=== PATIENT | female | born 1965 | race American Indian/Alaskan Native ===

== ENCOUNTER 2016-02-22 20:04 | Emergency (ER) | payer SELFPAY ==
[2016-02-23 00:52] LABS: Basophils % (Auto) 0.9 % (0.0-1.8); Eosinophils % (Auto) 2.7 % (0.0-4.3); Hematocrit 42.4 % (30.3-42.9); Hemoglobin 13.7 gm/dl (10.1-14.3); Mean Corpuscular HGB Conc 32 % (30-34); Mean Corpuscular Hemoglobin 29 pg (28-32); Mean Corpuscular Volume 91 fl (79-97); Platelet Count 283 K/mm3 (140-440); Red Blood Count 4.69 M/mm3 (3.65-5.03); Red Cell Distribution Width 13.5 % (13.2-15.2); White Blood Count 7.5 K/mm3 (4.5-11.0)
[2016-02-23 01:07] LABS: Albumin 4.2 g/dL (3.9-5); Albumin/Globulin Ratio 1.4 %; BUN/Creatinine Ratio 12.3; Bilirubin,Total 0.3 mg/dL (0.1-1.2); Calcium 8.9 mg/dL (8.4-10.2); Chloride 105.3 mmol/L (98-107); Total Protein 7.2 g/dL (6.3-8.2)
[2016-02-23] MEDS ORDERED: NACL ONE (07:47)
--- NOTE | 2016-02-23 07:48 | Emergency Department Report ---
HPI - General Chief Complaint: Abdominal Pain Time Seen by Provider: 02/23/16 07:36 - HPI HPI: Chief complaint: Right side pain HPI: States she woke up yesterday morning with right side pain. Patient denies any injury. Patient did have some loose bowel movements last week. Patient denies nausea vomiting or fever. Patient has had hysterectomy which was complicated by bladder which has subsequently healed. Patient denies any urinary symptoms. Patient has had no other abdominal surgeries. Pain is more lateral between the flank and the right upper quadrant but does radiate more coarse the flank than the abdomen. Patient states it worsens when she moves. Mode of arrival: private car Source: Patient Began: Yesterday morning Duration: Continuous Context: See above Quality: Dull Severity: 5 out of 10 Improved with: Nothing Worsened with: See above Associated signs and symptoms: See above ED Past Medical Hx - Past Medical History Previous Medical History?: Yes Hx Hypertension: Yes (not taking medications as her blood pressure is no longer elevated) - Surgical History Additional Surgical History: hysterectomy 05/2012 - Social History Smoking Status: Never Smoker Substance Use Type: None - Medications Home Medications: Home Medications Medication Instructions Recorded Confirmed Last Taken Type traMADol [Ultram 50 MG tab] 50 mg PO Q6HR PRN #10 tablet 02/23/16 Unknown Rx ED Review of Systems ROS: Stated complaint: RT FLANK PAIN Other details as noted in HPI ROS Constitutional: No fever ENT: No uri symptoms Cardiovascular: No chest pain Respiratory: No sob or cough GI: No nausea vomiting : No dysuria frequency or urgency, Skin: No rash Neuro: No focal weakness or numbness Psych: No depression Blair/lymph: No edema Physical Exam - Physical Exam Vital Signs: Vital Signs 02/23/16 02/23/16 02/23/16 00:06 04:37 06:42 Temperature 98.5 F 98.3 F 98.0 F Pulse Rate 76 73 79 Respiratory 20 18 18 Rate Blood Pressure 134/72 152/85 Blood Pressure 142/73 [Left] O2 Sat by Pulse 100 100 100 Oximetry 02/23/16 07:00 Temperature Pulse Rate Respiratory 18 Rate Blood Pressure Blood Pressure [Left] O2 Sat by Pulse 99 Oximetry Physical Exam: GENERAL: The patient is well-developed well-nourished . HEENT: Normocephalic. Atraumatic. Extraocular motions are intact. Patient has moist mucous membranes. NECK: Supple. No meningitic signs are noted. There is no adenopathy noted. CHEST/LUNGS: Clear to auscultation. There is no respiratory distress noted. HEART/CARDIOVASCULAR: Regular. There is no tachycardia. There is no gallop rub or murmur. ABDOMEN: Abdomen is soft, nontender. There is tenderness to the right flank and lateral abdominal wall. Patient has normal bowel sounds. There is no abdominal distention. SKIN: There is no rash. There is no edema. There is no diaphoresis. NEURO: The patient is awake, alert, and oriented. The patient is cooperative. The patient has no focal neurologic deficits. The patient has normal speech. MUSCULOSKELETAL: There is no tenderness or deformity. There is no limitation range of motion. There is no evidence of acute injury. ED Course Vital Signs 02/23/16 02/23/16 02/23/16 00:06 04:37 06:42 Temperature 98.5 F 98.3 F 98.0 F Pulse Rate 76 73 79 Respiratory 20 18 18 Rate Blood Pressure 134/72 152/85 Blood Pressure 142/73 [Left] O2 Sat by Pulse 100 100 100 Oximetry 02/23/16 07:00 Temperature Pulse Rate Respiratory 18 Rate Blood Pressure Blood Pressure [Left] O2 Sat by Pulse 99 Oximetry ED Medical Decision Making - Lab Data Result diagrams: 02/23/16 00:22 02/23/16 00:22 Laboratory Tests 02/23/16 00:22 Lipase 43 - Radiology Data Radiology results: report reviewed (CT abdomen negative) Critical care attestation.: If time is entered above; I have spent that time in minutes in the direct care of this critically ill patient, excluding procedure time. ED Disposition Clinical Impression: Right sided abdominal pain Disposition: DISCHARGED TO HOME OR SELFCARE Is pt being admited?: No Does the pt Need Aspirin: No Condition: Stable Instructions: Abdominal Pain (ED) Prescriptions: traMADol [Ultram 50 MG tab] 50 mg PO Q6HR PRN #10 tablet PRN Reason: Pain Referrals: PRIMARY CARE, [Primary Care Provider] - 3-5 Days [facility] [Provider Group] - 3-5 Days Time of Disposition: 08:29
[2016-02-23 08:09] LABS: Bacteria,Urine 1+ /HPF (Negative); Bilirubin,Urine NEG (Negative); Blood,Urine NEG (Negative); Ketones,Urine TR mg/dL (Negative); Leukocyte Esterase,Urine NEG (Negative); Mucus,Urine 1+ /HPF; Nitrite,Urine NEG (Negative)
--- NOTE | 2016-02-23 08:34 | Cat Scan Report ---
CT ABDOMEN AND PELVIS WITH CONTRAST INDICATION: Abdominal pain. COMPARISON: None similar. FINDINGS: Abdomen and pelvis CT performed following intravenous administration of 100 cc of Omnipaque 300. LUNG BASES: Nonspecific distal esophageal wall thickening, not excluded for gastroesophageal reflux and/or hiatal hernia, amongst others. ABDOMEN: Couple of sub-cm, indeterminate hepatic hypodensities. Right hepatic lobe approximately 17.5 cm in length. Otherwise unremarkable liver, spleen, gallbladder, pancreas, adrenals, non-aneurysmal abdominal aorta with mild atherosclerotic changes, IVC and non-hydronephrotic kidneys. No ascites. Nonopacified GI tract evaluation limited, though grossly nonobstructive. Mid to distal small bowel loops fluid filled and largely nondilated measuring up to 1.6 cm caliber, though maximum caliber in the left hemiabdomen up to 2.8 cm on axial image 106, series 2. Normal retrocecal appendix. Largest right lower quadrant mesenteric lymph node is 1.1 cm, image 202, series 2. No other significant adenopathy. Mild stool throughout colon, greatest along the ascending colon. Approximately 40-50% celiac axis narrowing soon after its aortic origin possible as on sagittal images 94-96. SMA and JARED are patent. PELVIS: Uterus surgically absent. Few small phleboliths. Urinary bladder suboptimally distended, though otherwise unremarkable. Rectosigmoid stool. No free fluid or significant adenopathy. Mild degenerative changes with most prominent lower thoracic spine osteophytes. CONCLUSION: No acute CT abnormality with various incidental findings, as above. Please correlate. I phoned the above results to Dr. Kirk in the ER, 8:20 AM, 02/23/2016. Thank you for the opportunity to participate in this patient's care.
[2016-02-23 08:43] VITALS: BP 108/65
--- NOTE | 2016-02-23 09:54 | XRay Report ---
CHEST 2 VIEWS INDICATION: Chest pain. COMPARISON: None similar. FINDINGS: PA and lateral chest radiographs demonstrate limited inspiration with mild exaggerated cardiomediastinal silhouette and slightly crowded lung markings, more so towards the bases. No dense focal consolidation, pleural effusions or CHF. Thoracic spondylosis. CONCLUSION: No acute chest process with mild hypoinflation, as described. Thank you for the opportunity to participate in this patient's care.
== END 2016-02-23 08:44 | disposition home or self-care (01) ==
LOC: ED 20:04
DX: R10.9 Unspecified abdominal pain (principal); I10 Essential (primary) hypertension
CPT/HCPCS: 36415; 71020; 74177; 80053; 81001; 83690; 85025; 99285; Q9967

== ENCOUNTER 2021-03-24 20:22 | Inpatient (IN) | payer SELFPAY ==
[2021-03-25] MEDS ORDERED: cloNIDine 0.2 MG TAB PO ONE (01:08)
[2021-03-25 02:01] LABS: BUN/Creatinine Ratio 14; Blood Urea Nitrogen 15 mg/dL (7-17); Calcium 8.7 mg/dL (8.4-10.2); Hemolysis Index 9
--- NOTE | 2021-03-25 02:01 | Cat Scan Report ---
CT HEAD WITHOUT CONTRAST INDICATION / CLINICAL INFORMATION: Dizziness and Headache. TECHNIQUE: CT of the head was performed without administration of intravenous contrast. All CT scans at this location are performed using CT dose reduction for ALARA by means of automated exposure contr ol. COMPARISON: None available. FINDINGS: CEREBRAL PARENCHYMA: No significant abnormality. No acute territorial infarct. HEMORRHAGE: None. EXTRA-AXIAL SPACES: Normal in size and morphology for the patient's age. VENTRICULAR SYSTEM: Normal in size and morphology for the patient's age. MIDLINE SHIFT / HERNIATION: None. CEREBELLUM / BRAINSTEM: Central hypoattenuation within the lower katharine possibly artifactual. Posterior fossa otherwise demonstrates no significant abnormality. ORBITS: Normal as visualized. SOFT TISSUES: No significant abnormality. SKULL: No significant abnormality. PARANASAL SINUSES / MASTOID AIR CELLS: Normal as visualized. ADDITIONAL FINDINGS: None. IMPRESSION: 1. Central hypoattenuation within the katharine possibly artifactual. Lacunar infarction excluded. MRI may be useful for further characterization. 2. Otherwise no acute findings. Signer Name: Moe Moore II, MD Signed: 03/25/2021 1:57 AM Workstation Name: [id number]
[2021-03-25 02:49] LABS: Hemoglobin 13.4 gm/dl (10.1-14.3)
[2021-03-25] MEDS ORDERED: ASPIRIN 325 MG TAB PO ONE (02:56)
[2021-03-25] MEDS ORDERED: MECLIZINE 25 MG TAB PO ONE (03:00)
--- NOTE | 2021-03-25 03:03 | Emergency Department Report ---
HPI - General Chief Complaint: Dizziness Time Seen by Provider: 03/25/21 02:36 - HPI HPI: Room 20 The patient is a 55-year-old female presenting with a chief complaint of dizziness. The patient states 2 weeks ago she had onset of dizziness while driving. Patient states for the past 2 weeks she has had intermittent dizziness, sometimes related to change in position. Patient denies a headache currently or preceding trauma. Patient admits to occasional nausea but denies vomiting. Patient denies paresthesia, weakness or dysarthria. The patient s tates for 1 month she has had pain inside of her right ear whenever she opens her mouth widely. ED Past Medical Hx - Past Medical History Previous Medical History?: Yes Hx Hypertension: Yes (not taking medications) - Surgical History Past Surgical History?: Yes Additional Surgical History: hysterectomy 05/2012 - Family History Family history: no significant - Social History Smoking Status: Current Every Day Smoker Substance Use Type: None (Denies illicit drug use), Alcohol (Occasional) - Medications Home Medications: Home Medications Medication Instructions Recorded Confirmed Last Taken Type traMADoL [Ultram 50 MG tab] 50 mg PO Q6HR PRN #10 tablet 02/23/16 Unknown Rx ED Review of Systems ROS: Stated complaint: HEADACHE/DIZZY Other details as noted in HPI Constitutional: no symptoms reported Eyes: denies: eye pain ENT: ear pain. denies: throat pain Respiratory: no symptoms reported Cardiovascular: denies: chest pain Endocrine: no symptoms reported Gastrointestinal: nausea. denies: vomiting Genitourinary: denies: dysuria Musculoskeletal: denies: back pain Neurological: vertigo. denies: headache, weakness, numbness, paresthesias Physical Exam - Physical Exam Vital Signs: Vital Signs 03/25/21 03/25/21 01:01 01:29 Temperature 98.9 F Pulse Rate 87 87 Respiratory 20 Rate Blood Pressure 207/114 Blood Pressure 207/114 [Right] O2 Sat by Pulse 99 Oximetry Physical Exam: GENERAL: The patient is well-developed well-nourished female lying on stretcher not appearing to be in acute distress. [] HEENT: Normocephalic. Atraumatic. Extraocular motions are intact. Patient has moist mucous membranes. No nystagmus. Right TM clear. 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 Trachea midline CHEST/LUNGS: Clear to auscultation. There is no respiratory distress noted. HEART/CARDIOVASCULAR: Regular. There is no tachycardia. There is no gallop rub or murmur. ABDOMEN: Abdomen is soft, nontender. Patient has normal bowel sounds. There is no abdominal distention. SKIN: There is no rash. There is no edema. There is no diaphoresis. NEURO: The patient is awake, alert, and oriented. The patient is cooperative. The patient has no focal neurologic deficits. The patient has normal speech. Cranial nerves II through XII grossly intact. No nystagmus noted. No dysmetria noted with [id number] bilaterally. NIHSS=0 MUSCULOSKELETAL: There is no evidence of acute injury. ED Course Vital Signs 03/25/21 03/25/21 01:01 01:29 Temperature 98.9 F Pulse Rate 87 87 Respiratory 20 Rate Blood Pressure 207/114 Blood Pressure 207/114 [Right] O2 Sat by Pulse 99 Oximetry ED Medical Decision Making - Lab Data Result diagrams: 03/25/21 01:22 03/25/21 01:22 Laboratory Tests 03/25/21 03/25/21 03/25/21 01:22 01:22 02:43 WBC 7.4 RBC 4.61 Hgb 13.4 Hct 42.1 MCV 91 MCH 30 MCHC 32 RDW 13.5 Plt Count 330 PT 11.9 L INR 0.79 L APTT 29.4 Thrombin Time 15.3 Sodium 144 Potassium 4.2 Chloride 108.5 H Carbon Dioxide 25 Anion Gap 15 BUN 15 Creatinine 1.1 Estimated GFR > 60 BUN/Creatinine Ratio 14 Glucose 130 H Calcium 8.7 - EKG Data -: EKG Interpreted by Il EKG shows normal: sinus rhythm Rate: normal - EKG Data When compared to previous EKG there are: previous EKG unavailable Interpretation: other (No ischemic changes seen) - Radiology Data Radiology results: report reviewed (CT head), image reviewed (CT head) [facility] [address] [place] [address] Cat Scan Report Signed Patient: SANDRA PALACIOS MR#: [id number] : 1965 Acct:[id number] Age/Sex: 55 / F ADM Date: 03/24/21 Loc: ED Attending Dr: Ordering Physician: BRANDON LAM MD Date of Service: 03/25/21 P rocedure(s): CT head/brain wo con Accession Number(s): [id number] cc: BRANDON LAM MD CT HEAD WITHOUT CONTRAST INDICATION / CLINICAL INFORMATION: Dizziness and Headache. TECHNIQUE: CT of the head was performed without administration of intravenous contrast. All CT scans at this location are performed using CT dose reduction for ALARA by means of automated exposu re control. COMPARISON: None available. FINDINGS: CEREBRAL PARENCHYMA: No significant abnormality. No acute territorial infarct. HEMORRHAGE: None. EXTRA-AXIAL SPACES: Normal in size and morphology for the patient's age. VENTRICULAR SYSTEM: Normal in size and morphology for the patient's age. MIDLINE SHIFT / HERNIATION: None. CEREBELLUM / BRAINSTEM: Central hypoattenuation within the lower katharine possibly artifactual. Posterior fossa otherwise demonstrates no significant abnormality. ORBITS: Normal as visualized. SOFT TISSUES: No significant abnormality. SKULL: No significant abnormality. PARANASAL SINUSES / MASTOID AIR CELLS: Normal as visualized. ADDITIONAL FINDINGS: None. IMPRESSION: 1. Central hypoattenuation within the katharine possibly artifactual. Lacunar infarction excluded. MRI may be useful for further characterization. 2. Otherwise no acute findings. Signer Name: Marie Sosa II, MD Signed: 03/25/2021 1:57 AM Workstation Name: [id number] Transcribed By: BERNARDINO Dictated By: MARIE SOSA II, MD Electronically Authenticated By: MARIE SOSA II, MD Signed Date/Time: 03/25/21156 DD/ 3 TD/TT: Print Cancel - Differential Diagnosis Peripheral vertigo, central vertigo, CVA Critical care attestation.: If time is entered above; I have spent that time in minutes in the direct care of this critically ill patient, excluding procedure time. ED Disposition Clinical Impression: Dizziness, Abnormal CT scan, head Disposition: ADMITTED INPATIENT Is pt being admited?: Yes Does the pt Need Aspirin: Yes Condition: Fair Time of Disposition: 04:07 (Hospitalist called (Dr Bonds))
[2021-03-25 03:24] LABS: Hematocrit 42.1 % (30.3-42.9); Mean Corpuscular HGB Conc 32 % (30-34); Mean Corpuscular Volume 91 fl (79-97); Platelet Count 330 K/mm3 (140-440); Red Blood Count 4.61 M/mm3 (3.65-5.03); Red Cell Distribution Width 13.5 % (13.2-15.2)
[2021-03-25 03:55] LABS: INR 0.79 (0.87-1.13)
[2021-03-25 03:56] LABS: Partial Thromboplastin Time 29.4 Sec. (24.2-36.6); Thrombin Time 15.3 Sec. (15.1-19.6)
--- NOTE | 2021-03-25 07:54 | History and Physical Report ---
History of Present Illness Date of examination: 03/25/21 Date of admission: 07/23/21 Chief complaint: Dizziness with headache History of present illness: Patient is a 55-year-old female with past medical history of hypertension unfortunately has not been taking her medication since 2017. Also history of tobacco use 1 to 2 cigarettes daily and also 1-2 beer at night to help her sleep. She presents to the ED with complaints of intermittent dizziness for 2 to 3 weeks but worse in the last 24 to 48 hours. She reports that she favors her right side when she is ambulating. She denies any paresthesia or gross neurological weakness or dysarthria. She does also report a headache which she rates at 3/10 intensity with no photophobia or phonophobia in the ED she was noted to have a blood pressure of 207/[address] of the brain remarkable for hypodense area in the mid katharine which there was also question of artifact. She is recommended for admission for further work-up for possible stroke secondary to hypertension. On my evaluation she reports that her symptoms have grossly improved although she is still very weak and afraid to get up to walk. Past History Past Medical History: hypertension Past Surgical History: hysterectomy Social history: smoking, full code Family history: no significant family history Medications and Allergies Allergies Allergy/AdvReac Type Severity Reaction Status Date / Time No Known Allergies Allergy Verified 11/23/14 21:46 Home Medications Medication Instructions Recorded Confirmed Last Taken Type traMADoL [Ultram 50 MG tab] 50 mg PO Q6HR PRN #10 tablet 02/23/16 Unknown Rx Review of Systems All systems: negative Constitutional: weakness, malaise, lethargy Exam - Physical Exam Narrative exam: VITAL SIGNS: Reviewed. GENERAL: The patient appears normally developed, Vital signs as documented. HEAD: No signs of head trauma. EYES: Pupils are equal. Extraocular motions intact. EARS: Hearing grossly intact. MOUTH: Oropharynx is normal. NECK: No adenopathy, no JVD. CHEST: Chest with clear breath sounds bilaterally. No wheezes, rales, or rhonchi. CARDIAC: Regular rate and rhythm. S1 and S2, without murmurs, gallops, or rubs. VASCULAR: No Edema. Peripheral pulses normal and equal in all extremities. ABDOMEN: Soft, non tender and non distended. No rebound or guarding, and no masses palpated. Bowel Sounds normal. MUSCULOSKELETAL: Good range of motion of all major joints. Extremities without clubbing, cyanosis or edema. NEUROLOGIC EXAM: Alert and oriented x 3 No focal sensory or strength deficits. Speech normal. Follows commands. PSYCHIATRIC: Mood normal. SKIN: detail exam as documented in skin assessment - Constitutional Vitals: Temp Pulse Resp BP Pulse Ox 98.9 F 73 16 124/71 97 03/25/21 01:01 03/25/21 07:31 03/25/21 07:47 03/25/21 07:31 03/25/21 07:47 Results - Labs CBC & Chem 7: 03/25/21 01:22 03/25/21 01:22 Labs: Laboratory Last Values WBC 7.4 K/mm3 (4.5-11.0) 03/25/21 01:22 RBC 4.61 M/mm3 (3.65-5.03) 03/25/21 01:22 Hgb 13.4 gm/dl (10.1-14.3) 03/25/21 01:22 Hct 42.1 % (30.3-42.9) 03/25/21 01:22 MCV 91 fl (79-97) 03/25/21 01:22 MCH 30 pg (28-32) 03/25/21 01:22 MCHC 32 % (30-34) 03/25/21 01:22 RDW 13.5 % (13.2-15.2) 03/25/21 01:22 Plt Count 330 K/mm3 (140-440) 03/25/21 01:22 PT 11.9 Sec. (12.2-14.9) L 03/25/21 02:43 INR 0.79 (0.87-1.13) L 03/25/21 02:43 APTT 29.4 Sec. (24.2-36.6) 03/25/21 02:43 Thrombin Time 15.3 Sec. (15.1-19.6) 03/25/21 02:43 Sodium 144 mmol/L (137-145) 03/25/21 01:22 Potassium 4.2 mmol/L (3.6-5.0) 03/25/21 01:22 Chloride 108.5 mmol/L (98-107) H 03/25/21 01:22 Carbon Dioxide 25 mmol/L (22-30) 03/25/21 01:22 Anion Gap 15 mmol/L 03/25/21 01:22 BUN 15 mg/dL (7-17) 03/25/21 01:22 Creatinine 1.1 mg/dL (0.6-1.2) 03/25/21 01:22 Estimated GFR > 60 ml/min 03/25/21 01:22 BUN/Creatinine Ratio 14 % 03/25/21 01:22 Glucose 130 mg/dL (65-100) H 03/25/21 01:22 Calcium 8.7 mg/dL (8.4-10.2) 03/25/21 01:22 Assessment and Plan Assessment and plan: Patient is a 55-year-old female with past medical history of hypertension unfortunately has not been taking her medication since 2017. Also history of tobacco use 1 to 2 cigarettes daily and also 1-2 beer at night to help her sleep. She presents to the ED with complaints of intermittent dizziness for 2 to 3 weeks but worse in the last 24 to 48 hours. She reports that she favors her right side when she is ambulating. She denies any paresthesia or gross neurological weakness or dysarthria. In the ED she was noted to have a blood pressure of 207/[address] of the brain remarkable for hypodense area in the mid katharine which there was also question of artifact. She is recommended for admission for further work-up for possible stroke secondary to hypertension. On my evaluation she reports that her symptoms have grossly improved although she is still very weak and afraid to get up to walk. Dizziness with possible TIA Hypertensive urgency EtOH use disorder Tobacco use disorder Noncompliant Plan We will admit patient to telemetry NIH scale is 0 We will obtain PT OT and stroke work-up including aspirin Lipitor and MRI Obtain neurology consultation for further evaluation Extensive counseling given to the patient on tobacco cessation and EtOH cessation We will start on appropriate blood pressure medications to better control her blood pressure counseling also provided to her total counseling time 30 minutes Plan of care discussed with the patient if work-up is negative patient can be discharged in 24 hours Monitor for any EtOH withdrawal Advance Directives: Yes Plan of care discussed with patient/family: Yes
--- NOTE | 2021-03-25 08:44 | Consultation ---
History of Present Illness Consult date: 03/25/21 Reason for Consult: Dizziness for a week History of present illness: - General Chief Complaint: Dizziness Time Seen by Provider: 03/25/21 02:36 - HPI The patient is a 55-year-old female presenting with a chief complaint of dizziness. The patient states 2 weeks ago she had onset of dizziness while driving. Patient states for the past 2 weeks she has had intermittent dizziness, sometimes related to change in position. with associated headache and elevated BP Patient admits to occasional nausea but denies vomiting. Patient denies paresthesia, weakness or dysarthria. The patient states for 1 month she has had pain inside of her right ear when ever she opens her mouth widely. According to pt. she is with long hx of HTN but she is not taking her medications Er BP was 207/114. CT brain is remarkable for hypodense area in mid Allison ? artifact she smoke 1-2 cig daily she drink 1-2 beer and or vodka daily to calm her down ED Past Medical Hx - Past Medical History Hx Hypertension: Yes (not taking medications) - Surgical History Surgical History: hysterectomy 05/2012 - Family History Family history: no significant - Social History Smoking Status: Current Every Day Smoker Substance Use Type: None (Denies illicit drug use), Alcohol (Occasional) - Medications Home Medications: Home Medications Medication Instructions Recorded Confirmed Last Taken Type traMADoL [Ultram 50 MG tab] 50 mg PO Q6HR PRN #10 tablet 02/23/16 Unknown Rx ED Review of Systems ROS: Stated complaint: HEADACHE/DIZZY Other details as noted in HPI Constitutional: no symptoms reported Eyes: denies: eye pain ENT: ear pain. denies: throat pain Respiratory: no symptoms reported Cardiovascular: denies: chest pain Endocrine: no symptoms reported Gastrointestinal: nausea. denies: vomiting Genitourinary: denies: dysuria Musculoskeletal: denies: back pain Neurological: vertigo. denies: headache, weakness, numbness, paresthesias Medications and Allergies Allergies Allergy/AdvReac Type Severity Reaction Status Date / Time No Known Allergies Allergy Verified 11/23/14 21:46 Home Medications Medication Instructions Recorded Confirmed Last Taken Type traMADoL [Ultram 50 MG tab] 50 mg PO Q6HR PRN #10 tablet 02/23/16 Unknown Rx Active Meds: Active Medications Acetaminophen (Acetaminophen 325 Mg Tab) 650 mg PO Q4H PRN PRN Reason: Pain MILD(1-3)/Fever >100.5/LOCEK Albuterol (Albuterol 2.5 Mg/3 Ml Nebu) 2.5 mg IH Q4HRT PRN PRN Reason: Shortness Of Breath Aspirin (Aspirin 325 Mg Tab) 325 mg PO QDAY PEDRO Atorvastatin Calcium (Atorvastatin 40 Mg Tab) 40 mg PO QHS PEDRO Heparin Sodium (Porcine) (Heparin 5,000 Unit/1 Ml Vial) 5,000 unit SUB-Q Q8HR PEDRO Hydralazine HCl (Hydralazine 25 Mg Tab) 50 mg PO Q8HR PEDRO Hydralazine HCl (Hydralazine 20 Mg/1 Ml Inj) 10 mg IV Q4HR PRN PRN Reason: Hypertension Hydrochlorothiazide (Hydrochlorothiazide 25 Mg Tab) 25 mg PO QDAY PEDRO Ondansetron HCl (Ondansetron 4 Mg/2 Ml Inj) 4 mg IV Q8H PRN PRN Reason: Nausea And Vomiting Oxycodone/Acetaminophen (Oxycodone /Acetaminophen 5-325mg Tab) 1 tab PO Q6H PRN PRN Reason: Pain, Moderate (4-6) Sodium Chloride (Sodium Chloride 0.9% 10 Ml Flush Syringe) 10 ml INJ PRN PRN PRN Reason: LINE FLUSH Sodium Chloride (Sodium Chloride 0.9% 10 Ml Flush Syringe) 10 ml IV BID PEDRO Sodium Chloride (Sodium Chloride 0.9% 10 Ml Flush Syringe) 10 ml IV PRN PRN PRN Reason: LINE FLUSH Physical Examination - Vital Signs Vital Signs: Vital Signs Temp Pulse Resp BP Pulse Ox 98.9 F 87 20 207/114 99 03/25/21 01:01 03/25/21 01:01 03/25/21 01:01 03/25/21 01:01 03/25/21 01:01 - Constitutional General appearance: comfortable - EENT EENT: Present: PERRL, mucous membranes moist - Respiratory Respiratory: Present: chest non-tender, lungs clear, rhonchi - Cardiovascular Cardiovascular: Present: regular rate, normal S1, normal S2 Extremities: Present: no peripheral edema bilatateraly, no clubbing, cyanosis - Gastrointestinal Gastrointestinal: Present: normoactive bowel sounds - Integumentary Integumentary: Present: normal - Neurologic Cranial nerve examination: PERRL, EOMI, intact Speech examination: intact Sensorimotor examination: intact Detailed motor examination: grossly full strength in, other (reflexes are suppressed , no clonus planter is down going ) - Level of Consciousness 1a. Level of Consciousness: alert/keenly responsive - LOC Questions 1b. LOC Questions: answers both correctly - LOC Command 1c. LOC Commands: performs tasks correctly - Best Gaze 2. Best Gaze: normal - Visual 3. Visual: no visual loss - Facial Palsy 4. Facial Palsy: normal symmetrical movement - Motor Arm 5a. Motor Arm Left: no drift 5b. Motor Arm Right: no drift - Motor Leg 6a. Motor Leg Left: no drift 6b. Motor Leg Right: no drift - Limb Ataxia 7. Limb Ataxia: absent - Sensory 8. Sensory: normal - Best Language 9. Best Language: no aphasia - Dysarthria 10. Dysarthria: normal - Extinction and Inattention 11. Extinction/Inattention: no abnormality - Scoring Total Score: 0 Stroke Severity: No Stroke Symptoms Results - Laboratory Findings CBC and BMP: 03/25/21 01:22 03/25/21 01:22 Abnormal Lab Findings: Abnormal Labs 03/25/21 03/25/21 01:22 02:43 PT 11.9 L INR 0.79 L Chloride 108.5 H Glucose 130 H Assessment and Plan # Assessment and Plan The patient is a 55-year-old female presenting with a chief complaint of dizziness. The patient states 2 weeks ago she had onset of dizziness while driving. Patient states for the past 2 weeks she has had intermittent dizziness, sometimes related to change in position. Patient denies a headache currently or preceding trauma. Patient admits to occasional nausea but denies vomiting. Patient denies paresthesia, weakness or dysarthria. The patient states for 1 month she has had pain inside of her right ear whenever she opens her mouth widely. #None specific dizziness -she is with none specific dizziness , at time positional , -NIH#0 -poorly controlled HTN -poor complying with medications -Ct brain is remarkable for possible hypodensity in mid Allison -started on ASA and Lipitor -MRI brain is pending # poorly controlled HTN -initial BP#207/114 -started on medications - BP control<150/80 # Alcohol intake daily -she average 1-2 driks daily -DT precaution -thiamine IV will follow
[2021-03-25] MEDS ORDERED: ONDANSETRON 4 MG/2 ML INJ IV PRN (09:00)
[2021-03-25] MEDS ORDERED: ACETAMINOPHEN 325 MG TAB PO PRN (09:00)
[2021-03-25] MEDS ORDERED: ALBUTEROL 2.5 MG/3 ML NEBU IH PRN (09:00)
[2021-03-25] MEDS ORDERED: hydrALAZINE 20 MG/1 ML INJ IV PRN (09:00)
[2021-03-25] MEDS ORDERED: oxyCODONE /ACETAMINOPHEN 5-325MG TAB PO PRN (09:00)
[2021-03-25] MEDS: hydrALAZINE 25 MG TAB PO SCH ×3 (09:14→21:35)
[2021-03-25] MEDS: HEPARIN 5,000 UNIT/1 ML VIAL SUB-Q SCH ×3 (09:20→21:35)
[2021-03-25] MEDS: hydroCHLOROthiazide 25 MG TAB PO SCH (10:25)
--- NOTE | 2021-03-25 10:52 | Magnetic Resonance Report ---
MR BRAIN WITHOUT CONTRAST INDICATION / CLINICAL INFORMATION: 55 years Female; stroke. TECHNIQUE: Multiplanar, multisequence MR images of the brain were obtained. COMPARISON: CT head dated 03/25/2021 FINDINGS: BRAIN / INTRACRANIAL CONTENTS: There are scattered areas of increased signal intensity on FLAIR imaging in the white matter of the c erebral hemispheres. These are nonspecific findings and may be related to microangiopathy (hypertensi on, diabetes, atherosclerosis), given the patient's age. No chronic infarct. Otherwise, no acute ischemia, acute hemorrhage, or hydrocephalus. CRANIOCERVICAL JUNCTION: No significant abnormality. VASCULAR FLOW-VOIDS: No significant abnormality. ORBITS: No significant abnormality of visualized orbits. SINUSES / MASTOIDS: No significant abnormality in the visualized paranasal sinuses or mastoid air dawson ls. ADDITIONAL FINDINGS: None. IMPRESSION: No acute intracranial abnormality. No evidence for acute ischemia or hemorrhage. Chronic white matter findings as described. MRA HEAD WITHOUT CONTRAST HISTORY: Stroke COMPARISON: None. TECHNIQUE: Routine MRA of the head is performed. 3-D/MIP reformats postprocessed. CONTRAST: None. FINDINGS: Intracranial vertebral arteries: No significant abnormality. Basilar artery: No significant abnormality. Posterior cerebral arteries: There is mild atherosclerotic irregularity in the left P2 segment but no occlusion or high-grade stenosis. The right JAVA SECURITY ENGINEER is within normal limits. Intracranial internal carotid arteries: No significant abnormality. Anterior cerebral arteries: No significant abnormality. Middle cerebral arteries: No significant abnormality. Additional findings: None. IMPRESSION: Mild atherosclerotic disease in the left JAVA SECURITY ENGINEER as described, otherwise, unremarkable MRA head. No large vessel occlusion is identified. Signer Name: Jose Mckee Jr, MD Signed: 03/25/2021 10:47 AM Workstation Name: [id number]
--- NOTE | 2021-03-25 10:52 | Magnetic Resonance Report ---
MR BRAIN WITHOUT CONTRAST INDICATION / CLINICAL INFORMATION: 55 years Female; stroke. TECHNIQUE: Multiplanar, multisequence MR images of the brain were obtained. COMPARISON: CT head dated 03/25/2021 FINDINGS: BRAIN / INTRACRANIAL CONTENTS: There are scattered areas of increased signal intensity on FLAIR imaging in the white matter of the c erebral hemispheres. These are nonspecific findings and may be related to microangiopathy (hypertensi on, diabetes, atherosclerosis), given the patient's age. No chronic infarct. Otherwise, no acute ischemia, acute hemorrhage, or hydrocephalus. CRANIOCERVICAL JUNCTION: No significant abnormality. VASCULAR FLOW-VOIDS: No significant abnormality. ORBITS: No significant abnormality of visualized orbits. SINUSES / MASTOIDS: No significant abnormality in the visualized paranasal sinuses or mastoid air dawson ls. ADDITIONAL FINDINGS: None. IMPRESSION: No acute intracranial abnormality. No evidence for acute ischemia or hemorrhage. Chronic white matter findings as described. MRA HEAD WITHOUT CONTRAST HISTORY: Stroke COMPARISON: None. TECHNIQUE: Routine MRA of the head is performed. 3-D/MIP reformats postprocessed. CONTRAST: None. FINDINGS: Intracranial vertebral arteries: No significant abnormality. Basilar artery: No significant abnormality. Posterior cerebral arteries: There is mild atherosclerotic irregularity in the left P2 segment but no occlusion or high-grade stenosis. The right WANT AD CLERK is within normal limits. Intracranial internal carotid arteries: No significant abnormality. Anterior cerebral arteries: No significant abnormality. Middle cerebral arteries: No significant abnormality. Additional findings: None. IMPRESSION: Mild atherosclerotic disease in the left WANT AD CLERK as described, otherwise, unremarkable MRA head. No large vessel occlusion is identified. Signer Name: Jose Mckee Jr, MD Signed: 03/25/2021 10:47 AM Workstation Name: [id number]
--- NOTE | 2021-03-25 12:19 | Vascular Lab Report ---
DUPLEX DOPPLER ULTRASOUND CAROTID, BILATERAL INDICATION / CLINICAL INFORMATION: stroke. COMPARISON: None available. FINDINGS: RIGHT CAROTID: Mild atherosclerotic plaque. - PLAQUE ESTIMATE (%): < 50% - CCA velocity: 77.5 cm/sec. - ICA peak systolic velocity: 85.0 cm/sec. - ICA/CCA PSV Ratio: 1.10 Right Vertebral Artery: Antegrade flow. LEFT CAROTID: Mild atherosclerotic plaque. - PLAQUE ESTIMATE (%): < 50% - CCA velocity: 76.4 cm/sec. - ICA peak systolic velocity: 103.5 cm/sec. - ICA/CCA PSV Ratio: 1.35 Left Vertebral Artery: Antegrade flow. IMPRESSION: 1. Right Internal Carotid Artery: Less than 50% diameter stenosis. 2. Left Internal Carotid Artery: Less than 50% diameter stenosis. Velocity criteria are extrapolated from diameter data as defined by the Society of Radiologists in [place] [facility] Consensus Conference, Radiology 2003; 229;340-346. NO STENOSIS (NORMAL) - Plaque = none; ICA PSV < 125 cm/sec; ICA/CCA PSV Ratio < 2.0 <50% STENOSIS - Plaque < 50%; ICA PSV < 125 cm/sec; ICA/CCA PSV Ratio < 2.0 50-69% STENOSIS - Plaque > 50%; ICA PSV = 125-230 cm/sec; ICA/CCA PSV Ratio = 2.0-4.0 >70% BUT <100% STENOSIS - Plaque > 50%; ICA PSV > 230 cm/sec; ICA/CCA PSV Ratio > 4.0 NEAR OCCLUSION - Plaque = visible lumen; ICA PSV = high/low/none; ICA/CCA PSV Ratio = variable TOTAL OCCLUSION - Plaque = no lumen; ICA PSV = none; ICA/CCA PSV Ratio = N/A Signer Name: Casper Hernandez MD Signed: 03/25/2021 12:15 PM Workstation Name: [id number]
[2021-03-26] MEDS: hydrALAZINE 25 MG TAB PO SCH (05:16)
[2021-03-26] MEDS: HEPARIN 5,000 UNIT/1 ML VIAL SUB-Q SCH (05:17)
[2021-03-26 06:30] LABS: Hematocrit 39.9 % (30.3-42.9); Hemoglobin 13.1 gm/dl (10.1-14.3); Mean Corpuscular HGB Conc 33 % (30-34); Mean Corpuscular Volume 92 fl (79-97); Platelet Count 313 K/mm3 (140-440); Red Blood Count 4.34 M/mm3 (3.65-5.03); Red Cell Distribution Width 13.1 % (13.2-15.2)
[2021-03-26 06:54] LABS: BUN/Creatinine Ratio 15; Blood Urea Nitrogen 16 mg/dL (7-17); Calcium 8.6 mg/dL (8.4-10.2); Chol/HDL Ratio 4.55 %; HDL Cholesterol 45 mg/dL (40-59); Hemolysis Index 10; LDL Cholesterol,Direct 142 mg/dL (50-130)
[2021-03-26 08:31] VITALS: BP 132/76
[2021-03-26] MEDS: hydroCHLOROthiazide 25 MG TAB PO SCH (09:01)
--- NOTE | 2021-03-26 09:14 | Discharge Summary ---
Providers - Providers Date of Admission: 03/25/21 07:50 Date of discharge: 03/26/21 Attending physician: NITESH POWELL 03/25/21 07:47 Occupational Therapy Evaluate and Treat [CONS] Routine Comment: Reason For Exam: Neuro deficits Physical Therapy Evaluation and Treat [CONS] Routine Comment: Reason For Exam: Neuro deficits 03/25/21 07:48 Speech Therapy Evaluation and Treat [CONS] Routine Reason For Exam: swallow eval 03/25/21 07:50 Consult to Physician [CONS] Routine Comment: Consulting Provider: CÉSAR PALMER Physician Instructions: Reason For Exam: cva Primary care physician: PRECISION DEVICES INSPECTOR/TESTER Hospitalization Condition: Fair Disposition: 01 HOME / SELF CARE / HOMELESS Time spent for discharge: 34 minutes Core Measure Documentation - Palliative Care Palliative Care/ Comfort Measures: Not Applicable - Core Measures Any of the following diagnoses?: none Exam - Constitutional Vitals: Temp Pulse Resp BP Pulse Ox 98.2 F 89 18 132/76 97 03/26/21 08:06 03/26/21 08:06 03/26/21 08:06 03/26/21 08:06 03/26/21 08:06 Plan Activity: advance as tolerated Weight Bearing Status: Weight Bear as Tolerated Diet: low fat, low salt Follow up with: PRIMARY CAREMD [Primary Care Provider] - 3-5 Days LOUISA BLACKWOOD MD [Staff Physician] - 7 Days Prescriptions: AtorvaSTATin [Lipitor] 40 mg PO QHS #30 tablet hydrALAZINE [Apresoline TAB] 50 mg PO Q8HR #90 tablet Aspirin EC [Halfprin EC] 81 mg PO QDAY #30 tablet. hydroCHLOROthiazide [HCTZ] 25 mg PO QDAY #30 tablet
[2021-03-26] MEDS ORDERED: ASPIRIN 325 MG TAB PO SCH (10:00)
[2021-03-26 11:25] LABS: Band Neutrophils # (Manual) 0.1 K/mm3; Total Cells Counted 100
[2021-03-26 11:26] LABS: RBC Morphology Normal
[2021-03-26] MEDS ORDERED: FAMOTIDINE 20 MG TAB PO ONE (13:00)
--- NOTE | 2021-03-26 13:14 | Electrocardiograph Report ---
[facility] Test Date: 2021-03-25 Test Time: 02:57:03 Pat Name: SANDRA PALACIOS Department: Room: A458 Gender: F Service Crew Supervisor: CUSTODIAN SUPERVISOR : 1965 Requested By: BRANDON LAM Order Number: [id number] Reading MD: Raimundo Prado Measurements Intervals [place] Rate: 80 P: 35 [place]: 160 QRS: 40 QRSD: 87 T: 28 QT: 383 QTc: 443 Interpretive Statements Sinus rhythm Probable left atrial enlargement No previous ECG available for comparison Electronically Signed On 03-26-2021 13:14:00 EST by Raimundo Prado
--- NOTE | 2021-03-26 13:17 | Progress Note ---
Assessment and Plan # Assessment and Plan The patient is a 55-year-old female presenting with a chief complaint of dizziness. The patient states 2 weeks ago she had onset of dizziness while driving. Patient states for the past 2 weeks she has had intermittent dizziness, sometimes related to change in position. Patient denies a headache currently or preceding trauma. Patient admits to occasional nausea but denies vomiting. Patient denies paresthesia, weakness or dysarthria. The patient states for 1 month she has had pain inside of her right ear whenever she opens her mouth widely. #None specific dizziness -she is with none specific dizziness , at time positional , -NIH#0 -poorly controlled HTN -poor complying with medications -Ct brain is remarkable for possible hypodensity in mid Allison -started on ASA and Lipitor -MRI brain is unremarkable -echo with Ef#55-60% -LDL#142 -MRA brain is unremarkable -US carotid is with<50% stenosis -started on ASA and Lipitor instructed to comply with her BP medications # poorly controlled HTN -initial BP#207/114 -started on medications - BP control<150/80 # Alcohol intake daily -she average 1-2 driks daily -DT precaution -thiamine IV will sign off Subjective Date of service: 03/26/21 Interval history: doing well no complaint today wants to go home MRI brain is unremarkable US carotid is unremarkable echo with EF#55-60% -MRA brain is unremarkable LDL#142 Objective - Vital Sign Vital Signs - 12hr 03/26/21 03/26/21 03/26/21 03:28 05:16 06:00 Temperature 98.6 F Pulse Rate 79 79 82 Respiratory 18 Rate Blood Pressure 140/89 140/89 O2 Sat by Pulse 97 Oximetry 03/26/21 08:06 Temperature 98.2 F Pulse Rate 89 Respiratory 18 Rate Blood Pressure 132/76 O2 Sat by Pulse 97 Oximetry - General Apperance Constitutional: comfortable - EENT EENT: PERRL, mucous membranes moist - Respiratory Respiratory: lungs clear, rhonchi - Cardiovascular Cardiovascular: regular rate, normal S1, normal S2 Extremities: no peripheral edema bilat, no clubbing, cyanosis - Gastrointestinal Gastrointestinal: normoactive bowel sounds - Integumentary Integumentary: normal - Neurologic Cranial nerve examination: PERRL, EOMI, intact Speech examination: intact Detailed motor examination: grossly full strength in - Laboratory Findings CBC and BMP: 03/26/21 05:29 03/26/21 05:29 Abnormal Lab Findings: Abnormal Labs 03/25/21 03/25/21 03/25/21 01:22 02:43 20:39 RDW Seg Neuts % (Manual) Lymphocytes % (Manual) Eosinophils % (Manual) Lymphocytes # (Manual) PT 11.9 L INR 0.79 L Chloride 108.5 H Glucose 130 H POC Glucose 129 H Triglycerides Cholesterol LDL Cholesterol Direct 03/26/21 03/26/21 03/26/21 05:29 05:29 08:03 RDW 13.1 L Seg Neuts % (Manual) 75.0 H Lymphocytes % (Manual) 13.0 L Eosinophils % (Manual) 7.0 H Lymphocytes # (Manual) 0.8 L PT INR Chloride Glucose 129 H POC Glucose 118 H Triglycerides 255 H Cholesterol 205 H LDL Cholesterol Direct 142 H 03/26/21 11:59 RDW Seg Neuts % (Manual) Lymphocytes % (Manual) Eosinophils % (Manual) Lymphocytes # (Manual) PT INR Chloride Glucose POC Glucose 118 H Triglycerides Cholesterol LDL Cholesterol Direct
== END 2021-03-26 14:31 | disposition home or self-care (01) | DRG 149 ==
LOC: ED 20:22 → 4A 03-25 07:50
PROVIDERS: ADMIT Internal Medicine; ATTEND Internal Medicine
DX: R42 Dizziness and giddiness (principal); I16.0 Hypertensive urgency; F17.210 Nicotine dependence, cigarettes, uncomplicated; Z90.710 Acquired absence of both cervix and uterus; I10 Essential (primary) hypertension; Z91.19 Patient's noncompliance with other medical treatment and regimen; F10.10 Alcohol abuse, uncomplicated
CPT/HCPCS: 36415; 70450; 70544; 70551; 80048; 80061; 82962; 83036; 85007; 85025; 85027; 85610; 85670; 85730; 93005; 93010; 93306; 93880; G0378; C8929; J1644

== ENCOUNTER 2021-07-29 22:12 | Emergency (ER) | payer SELFPAY ==
--- NOTE | 2021-07-30 00:26 | XRay Report ---
RIGHT WRIST 4 VIEW(S) INDICATION / CLINICAL INFORMATION: INJURY COMPARISON: None available. FINDINGS: Acute fracture distal right radial metaphysis without obvious intra-articular extension. No significa nt offset or angulation. Right ulna appears intact. Carpal bones demonstrate no injury. IMPRESSION: 1. Fracture of the distal right radial metaphysis as detailed. Signer Name: Moe Moore II, MD Signed: 07/30/2021 12:21 AM Workstation Name: [id number]
[2021-07-30] MEDS ORDERED: oxyCODONE /ACETAMINOPHEN 5-325MG TAB PO ONE (00:52)
--- NOTE | 2021-07-30 00:58 | Emergency Department Report ---
ED Upper Extremity Inj HPI - General Chief Complaint: Extremity Injury, Upper Stated Complaint: RT WRIST PAIN Time Seen by Provider: 07/30/21 00:48 Source: patient Mode of arrival: Ambulatory Limitations: No Limitations - History of Present Illness Initial Comments: About 4 AM this morning patient tripped going up the stairs to the hotel room resulting in landing on the right wrist/arm and developing swelling pain which worsens with palpation and range of motion MD Complaint: Injury to:: right, wrist -: Sudden Other Extremity Injury: Wrist: Right Handedness: right Place: home Improves With: immobilization Worsens With: movement of extremity Context: fall Associated Symptoms: denies: weakness, numbness, suspects foreign body, heard/felt popping sensat - Related Data Previous Rx's Medication Instructions Recorded Last Taken Type traMADoL [Ultram 50 MG tab] 50 mg PO Q6HR PRN #10 tablet 02/23/16 Unknown Rx Aspirin EC [Halfprin EC] 81 mg PO QDAY #30 tablet. 03/26/21 Unknown Rx AtorvaSTATin [Lipitor] 40 mg PO QHS #30 tablet 03/26/21 Unknown Rx hydrALAZINE [Apresoline TAB] 50 mg PO Q8HR #90 tablet 03/26/21 Unknown Rx hydroCHLOROthiazide [HCTZ] 25 mg PO QDAY #30 tablet 03/26/21 Unknown Rx HYDROcodone/APAP 7.5-325 [Varnell 1 each PO Q8HR PRN #10 tablet 07/30/21 Unknown Rx 7.5/325] Allergies Allergy/AdvReac Type Severity Reaction Status Date / Time No Known Allergies Allergy Verified 11/23/14 21:46 ED Review of Systems ROS: Stated complaint: RT WRIST PAIN Other details as noted in HPI Comment: All other systems reviewed and negative ED Past Medical Hx - Past Medical History Hx Hypertension: Yes (not taking medications) - Surgical History Additional Surgical History: hysterectomy 05/2012 - Social History Smoking Status: Current Every Day Smoker - Medications Home Medications: Home Medications Medication Instructions Recorded Confirmed Last Taken Type traMADoL [Ultram 50 MG tab] 50 mg PO Q6HR PRN #10 tablet 02/23/16 Unknown Rx Aspirin EC [Halfprin EC] 81 mg PO QDAY #30 tablet. 03/26/21 Unknown Rx AtorvaSTATin [Lipitor] 40 mg PO QHS #30 tablet 03/26/21 Unknown Rx hydrALAZINE [Apresoline TAB] 50 mg PO Q8HR #90 tablet 03/26/21 Unknown Rx hydroCHLOROthiazide [HCTZ] 25 mg PO QDAY #30 tablet 03/26/21 Unknown Rx HYDROcodone/APAP 7.5-325 [Varnell 1 each PO Q8HR PRN #10 tablet 07/30/21 Unknown Rx 7.5/325] ED Physical Exam - General Limitations: No Limitations General appearance: alert, in no apparent distress - Head Head exam: Present: atraumatic, normocephalic - Eye Eye exam: Present: normal appearance - ENT ENT exam: Present: mucous membranes moist - Neck Neck exam: Present: normal inspection - Respiratory Respiratory exam: Present: normal lung sounds bilaterally. Absent: respiratory distress - Cardiovascular Cardiovascular Exam: Present: regular rate, normal rhythm. Absent: systolic murmur, diastolic murmur, rubs, gallop - GI/Abdominal GI/Abdominal exam: Present: soft, normal bowel sounds - Extremities Exam Extremities exam: Present: normal inspection - Back Exam Back exam: Present: normal inspection - Neurological Exam Neurological exam: Present: alert, oriented X3 - Psychiatric Psychiatric exam: Present: normal affect, normal mood - Skin Skin exam: Present: warm, dry, intact, normal color. Absent: rash ED Course Vital Signs 07/29/21 23:02 Temperature 99.5 F Pulse Rate 86 Respiratory 18 Rate Blood Pressure 178/97 O2 Sat by Pulse 99 Oximetry - Orthopedic Splinting/Casting Injury #1 Side: right Upper Extremity Injury Location: wrist Upper Extremity Immobilizer: sling/shoulder immobilize, wrist splint ED Medical Decision Making - Radiology Data Radiology results: report reviewed [facility] [address] [place] [address] XRay Report Signed Patient: SANDRA PALACIOS MR#: [id number] : 1965 Acct:[id number] Age/Sex: 55 / F ADM Date: 07/29/21 Loc: ED Attending Dr: Ordering Physician: DILCIA FRAGA MD Date of Service: 07/29/21 Procedure(s): XR wrist 3+V RT Accession Number(s): [id number] cc: DILCIA FRAGA MD Fluoro Time In Minutes: RIGHT WRIST 4 VIEW(S) INDICATION / CLINICAL INFORMATION: INJURY COMPARISON: None available. FINDINGS: Acute fracture distal right radial metaphysis without obvious intra-articular extension. No significant offset or angulation. Right ulna appears intact. Carpal bones demonstrate no injury. IMPRESSION: 1. Fracture of the distal right radial metaphysis as detailed. Signer Name: Marie Sosa II, MD Signed: 07/30/2021 12:21 AM Workstation Name: [id number] Transcribed By: BERNARDINO Dictated By: MARIE SOSA II, MD Electronically Authenticated By: MARIE SOSA II, MD Signed Date/Time: 07/30/2120 DD/ TD/TT: Critical care attestation.: If time is entered above; I have spent that time in minutes in the direct care of this critically ill patient, excluding procedure time. ED Disposition Clinical Impression: Distal radius fracture, right Disposition: 01 HOME / SELF CARE / HOMELESS Is pt being admited?: No Does the pt Need Aspirin: No Condition: Stable Instructions: Cast or Splint Care, Adult, [id number], Radial Fracture, Cast or Splint Care, Adult Additional Instructions: To be seen evaluate emergency department for injury to your right wrist secondary to a fall. X-ray did show a fracture to the distal radial aspect. Placed in splint and sling for comfort as well and has provided pain medication be sure to follow-up with orthopedic for definitive management of this fracture which may involve a cast Prescriptions: HYDROcodone/APAP 7.5-325 [Varnell 7.5/325] 1 each PO Q8HR PRN #10 tablet PRN Reason: Pain Referrals: ELEANOR GALARZA MD [Staff Physician] - 3-5 Days [facility] - 3-5 Days
[2021-07-30 02:09] VITALS: BP 172/88
== END 2021-07-30 02:32 | disposition home or self-care (01) ==
LOC: ED 22:12
DX: S52.501A Unspecified fracture of the lower end of right radius, initial encounter for closed fracture (principal); F17.200 Nicotine dependence, unspecified, uncomplicated; X58.XXXA Exposure to other specified factors, initial encounter; Y93.89 Activity, other specified; Y92.89 Other specified places as the place of occurrence of the external cause; Y99.8 Other external cause status
CPT/HCPCS: 99283

== ENCOUNTER 2021-09-04 19:05 | Emergency (ER) | payer SELFPAY ==
[2021-09-05] MEDS ORDERED: IBUPROFEN 800 MG TAB PO ONE (08:04)
--- NOTE | 2021-09-05 08:40 | Emergency Department Report ---
ED General Adult HPI - General Chief complaint: Extremity Injury, Upper Stated complaint: LT FOOT/RT WRIST INJURY Time Seen by Provider: 09/05/21 08:04 Source: patient Mode of arrival: Ambulatory Limitations: No Limitations - History of Present Illness Initial comments: Is a 55-year-old female who presents for left fourth toe pain. States she impacted her toe on a dresser at home. Causing 5/10 pain and some swelling. There is no deformity patient remains amatory with steady gait. There is no abrasion laceration or bleeding. Patient has secondary complaint of left wrist pain sustained 1 month ago. From a fall diagnosed with wrist sprain. Patient denies new fall injury or trauma. Patient appears well nontoxic. States primary concern is pain. - Related Data Previous Rx's Medication Instructions Recorded Last Taken Type traMADoL [Ultram 50 MG tab] 50 mg PO Q6HR PRN #10 tablet 02/23/16 Unknown Rx Aspirin EC [Halfprin EC] 81 mg PO QDAY #30 tablet. 03/26/21 Unknown Rx AtorvaSTATin [Lipitor] 40 mg PO QHS #30 tablet 03/26/21 Unknown Rx hydrALAZINE [Apresoline TAB] 50 mg PO Q8HR #90 tablet 03/26/21 Unknown Rx hydroCHLOROthiazide [HCTZ] 25 mg PO QDAY #30 tablet 03/26/21 Unknown Rx HYDROcodone/APAP 7.5-325 [Rosebud 1 each PO Q8HR PRN #10 tablet 07/30/21 Unknown Rx 7.5/325] Ibuprofen [Motrin 800 MG tab] 800 mg PO Q8HR PRN #30 tablet 09/05/21 Unknown Rx Allergies Allergy/AdvReac Type Severity Reaction Status Date / Time No Known Allergies Allergy Verified 11/23/14 21:46 ED Review of Systems ROS: Stated complaint: LT FOOT/RT WRIST INJURY Other details as noted in HPI Constitutional: denies: chills, fever Eyes: denies: eye pain, eye discharge, vision change ENT: denies: ear pain, throat pain Respiratory: denies: cough, shortness of breath, wheezing Cardiovascular: denies: chest pain, palpitations Endocrine: no symptoms reported Gastrointestinal: denies: abdominal pain, nausea, diarrhea Genitourinary: denies: urgency, dysuria, discharge Musculoskeletal: other (Left great toe pain right wrist pain) Skin: denies: rash, lesions Neurological: denies: headache, weakness, paresthesias Psychiatric: denies: anxiety, depression Hematological/Lymphatic: denies: easy bleeding, easy bruising ED Past Medical Hx - Past Medical History Previous Medical History?: Yes Hx Hypertension: Yes (not taking medications) - Surgical History Past Surgical History?: Yes Additional Surgical History: hysterectomy 05/2012 - Social History Smoking Status: Never Smoker Substance Use Type: None - Medications Home Medications: Home Medications Medication Instructions Recorded Confirmed Last Taken Type traMADoL [Ultram 50 MG tab] 50 mg PO Q6HR PRN #10 tablet 02/23/16 Unknown Rx Aspirin EC [Halfprin EC] 81 mg PO QDAY #30 tablet. 03/26/21 Unknown Rx AtorvaSTATin [Lipitor] 40 mg PO QHS #30 tablet 03/26/21 Unknown Rx hydrALAZINE [Apresoline TAB] 50 mg PO Q8HR #90 tablet 03/26/21 Unknown Rx hydroCHLOROthiazide [HCTZ] 25 mg PO QDAY #30 tablet 03/26/21 Unknown Rx HYDROcodone/APAP 7.5-325 [Rosebud 1 each PO Q8HR PRN #10 tablet 07/30/21 Unknown Rx 7.5/325] Ibuprofen [Motrin 800 MG tab] 800 mg PO Q8HR PRN #30 tablet 09/05/21 Unknown Rx ED Physical Exam - General Limitations: No Limitations General appearance: alert, in no apparent distress - Head Head exam: Present: atraumatic, normocephalic - Eye Eye exam: Present: normal appearance, EOMI Pupils: Present: normal accommodation - ENT ENT exam: Present: mucous membranes moist - Neck Neck exam: Present: normal inspection, full ROM. Absent: tenderness - Respiratory Respiratory exam: Present: normal lung sounds bilaterally. Absent: respiratory distress, wheezes - Cardiovascular Cardiovascular Exam: Present: regular rate, normal rhythm, normal heart sounds. Absent: systolic murmur, diastolic murmur, rubs, gallop - GI/Abdominal GI/Abdominal exam: Present: soft, normal bowel sounds. Absent: distended, tenderness - Rectal Rectal exam: Present: deferred - Extremities Exam Extremities exam: Present: full ROM, normal capillary refill - Expanded Upper Extremity Exam Right Forearm Wrist exam: Present: full ROM, tenderness. Absent: swelling, abrasion, laceration, ecchymosis, deformity, crepidus, dislocation, erythema, tenderness over anatomical snuff box, pain with axial thumb loading Hand Wrist exam: Present: full ROM. Absent: tenderness, swelling Neuro motor exam: Present: wrist extension intact, thumb opposition intact, thumb adduction intact, fingers 2-5 abduction intact Neurosensory exam: Present: radial nerve intact Vascular: Present: normal capillary refill - Expanded Lower Extremity Exam Left Foot/Toe exam: Present: full ROM, tenderness, erythema (Left fourth digit range of motion is intact to direct opposition [employer] less than 3 seconds distal pulses intact no deformity). Absent: swelling, abrasion, laceration, ecchymosis, deformity, crepidus, amputation, puncture wound, foreign body, calcaneal tenderness, tenderness at base of 5th metatarsal, nail avulsion, subungual hematoma Neuro vascular tendon exam: Absent: pulse deficit, motor deficit, sensory deficit, tendon deficit Gait: Positive: observed and normal - Back Exam Back exam: Present: normal inspection. Absent: full ROM, CVA tenderness (R), CVA tenderness (L) - Neurological Exam Neurological exam: Present: alert, oriented X3, CN II-XII intact, reflexes normal. Absent: motor sensory deficit - Psychiatric Psychiatric exam: Present: normal affect, normal mood - Skin Skin exam: Present: warm, dry, intact, normal color. Absent: rash ED Course Vital Signs 09/04/21 19:44 Temperature 98.7 F Pulse Rate 93 H Respiratory 18 Rate Blood Pressure 170/99 O2 Sat by Pulse 98 Oximetry ED Medical Decision Making - Medical Decision Making This is a left foot contusion, distal pulses intact [employer] is not less than 3 seconds bilateral patient is amatory with steady gait. Left wrist pain is greater than 1 month old range of motion is intact no xiphoid tenderness no pain to the simulated axial thumb loading distal pulses intact. Plan counter NSAIDs as needed for pain follow-up with primary care doctor in 2 to 3 days. Patient verbalized agreement and understanding with discharge plan patient DC'd home in stable condition at this time. Critical care attestation.: If time is entered above; I have spent that time in minutes in the direct care of this critically ill patient, excluding procedure time. ED Disposition Clinical Impression: Contusion of foot, left Qualifiers: Encounter type: initial encounter Qualified Code(s): S90.32XA - Contusion of left foot, initial encounter Strain of wrist, left Qualifiers: Encounter type: initial encounter Qualified Code(s): S66.912A - Strain of unspecified muscle, fascia and tendon at wrist and hand level, left hand, initial encounter Disposition: HOME / SELF CARE / HOMELESS Is pt being admited?: No Does the pt Need Aspirin: No Condition: Stable Instructions: Contusion, [id number], Wrist Sprain Rehab-SportsMed Additional Instructions: Take ibuprofen as needed for pain, ice therapy as directed. Follow-up with your doctor in 2 to 3 days. Return to the emergency department if symptoms worsen. Prescriptions: Ibuprofen [Motrin 800 MG tab] 800 mg PO Q8HR PRN #30 tablet PRN Reason: pain Referrals: ALEX AGUILAR MD [Primary Care Provider] - 3-5 Days ELEANOR GALARZA MD [Staff Physician] - 3-5 Days Forms: Work/School Release Form(ED) Time of Disposition: 08:46
[2021-09-05 08:51] VITALS: BP 128/80
== END 2021-09-05 08:51 | disposition home or self-care (01) ==
LOC: ED 19:05
DX: S66.912A Strain of unspecified muscle, fascia and tendon at wrist and hand level, left hand, initial encounter (principal); S90.32XA Contusion of left foot, initial encounter; I10 Essential (primary) hypertension; W19.XXXA Unspecified fall, initial encounter; Y93.89 Activity, other specified; Y92.89 Other specified places as the place of occurrence of the external cause; Y99.8 Other external cause status
CPT/HCPCS: 99282

== ENCOUNTER 2021-09-29 14:35 | Emergency (ER) | payer SELFPAY ==
[2021-09-29 14:47] VITALS: BP 148/78
== END 2021-09-29 17:06 | disposition left against medical advice (07) ==
LOC: ED 14:35
DX: T67.5XXA Heat exhaustion, unspecified, initial encounter (principal); Z53.21 Procedure and treatment not carried out due to patient leaving prior to being seen by health care provider; X58.XXXA Exposure to other specified factors, initial encounter; Y93.89 Activity, other specified; Y92.89 Other specified places as the place of occurrence of the external cause; Y99.8 Other external cause status